=== PATIENT | female | born 2005 | race African-American/Black ===

== ENCOUNTER 2024-09-02 13:28 | Emergency (ER) | payer BC, SELFPAY ==
--- NOTE | 2024-09-02 13:34 | ED_ITS ---
HPI - Female Genitourinary General Chief complaint: RN PLASTICS Stated complaint: std test Time Seen by Provider: 09/02/24 13:41 Source: patient and RN notes reviewed Mode of arrival: ambulatory Limitations: no limitations History of Present Illness HPI Narrative: 19-year-old female presents to the [facility] with concerns for STDs. States that she was tested back in March, never treated, was unable to pick get back to get treatment. Comes in today just requesting treatment. Has had discharge. Patient states that she has not had sex since she was diagnosed in March. Patient's last period was 5 days ago. [facility] in [facility], patient was able to bring up my chart, patient was positive for chlamydia and gonorrhea. Onset (ago): month(s) Related Data Allergies Allergy/AdvReac Type Severity Reaction Status Date / Time No Known Allergies Allergy Verified 09/02/24 13:38 Review of Systems Review of Systems: All systems reviewed & are unremarkable except as noted in HPI and below Constitutional: Constitutional: Reports no additional constitutional complaints ENT: Reports system reviewed and no additional complaints, except as documented Cardiovascular: Cardiovascular: Reports no additional cardiovascular complaints, Denies chest pain and Denies dyspnea Respiratory: Respiratory: Reports no additional respiratory complaints, Denies chest congestion, Denies cough and Denies dyspnea Genitourinary: Genitourinary: Reports as per HPI Musculoskeletal: Musculoskeletal: Reports no additional musculoskeletal complaints Integumentary/Breasts: Skin/Breast: Reports system reviewed and no additional complaints, except as docu PMFSH Comments At the time of my signature, I reviewed and agree with the nursing past medical, surgical, social, and family history. There is no relevant family history pertinent to the patient complaint. Exam Const: General: cooperative, healthy appearing, comfortable, no acute d istress, well developed, alert and well nourished Nutritional Appearance: well nourished Orientation/consciousness: patient oriented x3 Limitations: no limitations HENMT: Head: normal to inspection Eyes: General: appearance normal, both eyes and all related structures Alignment and Position: alignment normal Neck: Neck: normal visual inspection, full ROM, no lymphadenopathy and no meningeal signs Chest: Chest palpation & inspection: normal inspection of the chest Resp: Effort & Inspection: normal respiratory effort and able to speak in complete sentences Auscultation: clear to auscultation bilaterally, no crackles, no rales, no rhonchi and no wheezes Cardio: Rate: regular rate GI: GI Palp: No abdominal tenderness : General: Yes no CVA tenderness Speculum Exam - Vagina: abnormal vaginal discharge, erythematous and tenderness Speculum Exam - Cervix: Cervical os closed, Cervical tenderness present and Other cervical findings present (Friable) Other: Chaperoned by Dhara Skin: General skin exam: normal color and no rashes or lesions noted Neuro: General: patient oriented x3, gait normal, moves all extremities and no meningeal signs Cognition (Neuro): normal cognition Speech: normal speech Gait exam (Neuro): Normal gait present Extrem: General: normal to inspection, full ROM, capillary refill normal and normal gait Psych: Appearance: grossly normal and well kempt Mental Status: mental status grossly normal Speech and movement: Normal speech and movement present and Clear speech present Affect: normal affect Attitude: cooperative Course Course Level of Care: Express Care Visit Vital Signs Vital signs: Vital Signs Temperature 98.0 F 09/02/24 13:41 Pulse Rate 98 09/02/24 13:41 Respiratory Rate 18 09/02/24 13:41 Blood Pressure 139/78 09/02/24 13:41 Pulse Oximetry 100 09/02/24 13:41 Oxygen Delivery Room Air 09/02/24 13:41 Temperature 98.0 F 09/02/24 13:41 Pulse Rate 98 09/02/24 13:41 Respiratory Rate 18 09/02/24 13:41 Blood Pressure 139/78 09/02/24 13:41 Pulse Oximetry 100 09/02/24 13:41 Oxygen Delivery Room Air 09/02/24 13:41 Reviewed MDM - Female Genitourinary MDM Narrative Medical decision making narrative: Patient sitting in exam room. Patient is nontoxic, vitals are stable Swab done for BV, trich, gonorrhea, chlamydia. Due to patient's exam, covering for gonorrhea, will call in additional medication if positive Patient appropriate for outpatient treatment with close follow-up. List of STI clinics given Discharge instructions reviewed with patient, as well as provided in writing per nursing staff. The instructions also include specific and strict return/GO TO THE ER as well as f/u information. All questions have been answered, and the patient deny any further questions with discharge and discharge plan. Some parts of this dictation were generated by voice recognition software and may contain typographical and/or grammatical inaccuracies. Differential Diagnosis Differential diagnosis: Likely urinary tract infection, bacterial vaginosis, trichomoniasis, cervicitis, vaginitis, cystitis and dysmenorrhea Lab Data Labs: Lab Results 09/02/24 09/02/24 Range/Units 13:52 13:55 C. trachomatis (PCR) Pending N. gonorrhoeae (PCR) Pending T. vaginalis (PCR) Pending Bact Vaginosis Panel Cancelled Reviewed Critical Care Time Critical Care Time Critical Care Time: No Discharge Plan Discharge Clinical Impression: Concern about STD in female without diagnosis, History of gonorrhea, History of chlamydia Patient Disposition: Home Condition: Stable Instructions: Bacterial Vaginosis (ED), Chlamydia (ED), Safe Sex Practices (ED), Gonorrhea (ED) Additional Instructions: You been tested for chlamydia, gonorrhea and Trichomonas. We have given you a shot of Rocephin, this is to treat the gonorrhea. If the others come back positive we will call you or please give us a call at the clinic on either late or Sunday. If you are at all positive please follow-up with an STI clinic or automotive fuel systems converter provider for further evaluation and additional testing. New or worsening symptoms go directly to the emergency room Patient Language: [place] Follow-up/Referrals: PHYSICIAN,ELECTRONIC DEVELOPMENT TECHNICIAN [Primary Care Provider] - Sourav Echols MD [Physician] - 1 Week Time of Disposition: 14:06
--- OUTSIDE RECORDS SUMMARY | 2024-09-02 13:34 | XMS_ITS | Referral Summary ---
Author Organization [facility] Address [address] [place] [address] Care Team Providers Care Structural Steel Worker Name Role Phone Avril Marquis MD Unavailable [phone] Oriana Ruggiero NP Primary Care Provider [phone] Allergies No known active allergies Active Problems Problem Noted Date Diagnosed Date Unspecified mood (affective) disorder 10/06/2022 Social History Tobacco Use Types Packs/Day Years Used Date Smoking Tobacco: Never Assessed Personal Safety Answer Date Recorded Have you ever been in or are you currently in a harmful physical or emotional relationship or is someone making you feel afraid or unsafe? 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 Gender Identity Not on file Sexual Orientation Not on file Last Filed Vital Signs Vital Sign Reading Time Taken Comments Blood Pressure 126/57 06/16/2023 4:00 AM CDT Pulse 54 06/16/2023 4:00 AM CDT Temperature 37.1 C (98.8 F) 06/15/2023 11:56 PM CDT Respiratory Rate 13 06/16/2023 4:00 AM CDT Oxygen Saturation 93% 06/16/2023 4:00 AM CDT Inhaled Oxygen Concentration - - Weight 88.5 kg (195 lb) 06/15/2023 11:56 PM CDT Height - - Body Mass Index - - Plan of Treatment Not on file Insurance [place]OW [place] [employer] KIDS ANTHEM ACCESS CHOICE [place]ALTH[place] ACCESS CHOICE Member Subscriber Plan / Payer (Ef fective 2011-Present) Name:Marcelle Hyatt Relation to Subscriber:Child Name:GEMA HYATT Date of :1962 (Home) Address: [address] [place] [address] Payer ID:[id number] (NAIC) Type:BC ALLIANCE Address: [address] [place] [id number] Care Teams Structural Steel Worker Relationship Specialty [place] [address] [place] [address] PCP - General Family Medicine 02/08/23 Avril Marquis MD Psychiatry 11/08/22
--- OUTSIDE RECORDS SUMMARY | 2024-09-02 13:34 | XMS_ITS | Clinical Summary ---
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 Gender Identity Not on file Sexual Orientation Not on file Obstetrics History Last Filed Vital Signs Vital Sign Reading [...] Mass Index - - Plan of Treatment Health Maintenance Due Date Last Done Comments Cervical Cancer Screening 2003 Depression Screening 2003 Hepatitis C Screening 2003 Varicella Vaccines (2 of 2 - 2-dose childhood series) 2007 08/31/2004 Regular Well Visit/Exam 18-64 08/27/2021 Covid-19 Vaccine (2023- season) 2023 08/12/2021, 09/18/2020, 08/23/2020 Influenza Vaccine (#1) 2024 DTaP/Tdap/Td Vaccine (7 - Td or Tdap) 10/25/2025 10/26/2015, 10/26/2015, 01/16/2005, Additional history exists HPV Vaccines Completed 09/13/2016, 10/07, 10/26/2015 Hepatitis B Screening Completed 09/13/2017 , 06/02/2004, 03/16/2004, Additional history exists Meningococcal Vaccine Completed 09/12/2019 , 09/12/2019, 10/26/2015 Meningococcal B Vaccine Completed 03/03/19, 03/03/2020, 09/12/2019, Additional history exists Pneumococcal vaccine <65 Aged Out No longer eligible based on patient's age to complete this topic [place]ESS CHOICE [employer]OW [place] [employer]IDS ANTHEM ACCESS CHOICE Care Teams Merchandise Shopper Relationship Specialty [place] [address] [address] PCP - General Family Medicine 02/08/23 Avril Marquis MD Psychiatry 11/08/22
--- OUTSIDE RECORDS SUMMARY | 2024-09-02 13:34 | XMS_ITS | Continuity of Care Document ---
Author Organization [facility] Address [address] [place] [address] Phone Care Team Providers Care Brine Maker Name Role Phone Management, Case Unavailable Unavailable Allergies, Adverse Reactions, Alerts Substance Reaction Status Criticality pineapple Active No Information [employer]ivatives Active No In formation Procedures Procedure Date OFFICE/OUTPATIENT VISIT, NEW URINE TEST, BY VISUAL COLOR CO MPARISON METHODS Advance Directives Directive Yes / No Effective Date File Name No Information Encounters Encounter Description Practice Location Reason(s) For Visit Diagnoses Date Provider Providers Copied on Encounter [facility], [address], [place], [place], [id number] , [place] tel: [phone] [facility] No Information [address] [facility] [address]. [address], [place], [place], [id number], [place]. tel:[phone] [facility], [address], [place], [place], [address] , [place] tel:[phone] [facility] No Information No Information OFFICE/OUTPA TIENT VISIT, NEW [facility], [address], [place], [place], [address] , [place] tel: [phone] [facility] check up (chief complaint) BMI pediatric, greater than or equal to 95% for ageEncounter for testEncounter for STD screeningEncounter for sex educationEncounter for other general counseling on contraceptionOverw eight or Obesity 1 No Information Family History Family Member Type Diagnosis Age At Onset No Information Immunizations Vaccine Date Status Comments Bexsero (MenB) administered Source: Other Registry Bexsero (MenB) administered Source: Other Registry meningococcal ACWY vaccine, unspecified formulation administered Source: Other Re gistry Vaqta/Havrix Ped/Adol (HepA) administered Source: Other Registry IPOL (IPV) administered Source: Other R egistry Recombivax/Engerix B Ped/Ado l (HepB ped/adol, 3 dose) administered Source: Other Regist ry Vaqta/Havrix Ped/Adol (HepA) administered Source: Other Registry Adacel/Boostrix (Tdap) administered [facility] e: Other Registry Menactra (MCV4P) administered Source: Ot er Registry Gardasil 9 (HPV-9) administered Source: O ther Registry Haemophilus influenzae type b vaccine, conjugate unspecified formulation administered Source: Other Regist ry Infanrix (DTaP younger than 7 yrs) admini stered Source: Other Registry Varivax (varicella) administered Source: Other Registry MMR II (MMR) administered Source: Other R egistry IPOL (IPV) administered Source: Other R egistry Recombivax/Engerix B Ped/Ado l (HepB ped/adol, 3 dose) administered Source: Other Regist ry Haemophilus influenzae type b vaccine, conjugate unspecified formulation administered Source: Other Regist ry Infanrix (DTaP younger than 7 yrs) admini stered Source: Other Registry IPOL (IPV) administered Source: Other R egistry Haemophilus influenzae type b vaccine, conjugate unspecified formulation administered Source: Other Regist ry Infanrix (DTaP younger than 7 yrs) admini stered Source: Other Registry ActHib [Hib (PRP-T)] administered Source: Other Registry Pediarix (DTaP/HepB/IPV) administered Liz rce: Other Registry Payers Payer name Insurance type Covered constitution party ID Authoriza tion(s) No Information Social History Type Description Quantity Date Captured Comments Sex Female Smoking Status No Information Chief Complaint And Reason For Visit No Information Reason For Referral Reason For Referral No Information History Of Present Illness Encounter Date Complaint History Of Prese nt Illness check up Marcelle here with counselor requesting testUnprotected intercourse with partner 2-3 weeks Noticed mild breast tendernessUnsure of last period, around Morel's day. Monthly menstrual usuallyDeclined condoms todayNo further concerns Functional Status Date Functional Assessmen t No Information Instructions Date Instruction Additional Infor mation AFSHAN and depo provera injection discussed. Marcelle will f/u once choice is made regarding contraception Related to Encounter for other general counseling on contraception Counseled on safe se x practices-STI and preventionExtensive education givenDecline condoms Related to Encounter for sex education Nutrition and Physic al activity handout provided Related to Overweight or Obesity negative Related to Encou nter for test Food education, guidance, and co unseling Related to Body mass index [BMI] pediatric, greater than or equal to 95th percentile for age Assessments Type Assessment Date No Information Patient Care Teams Name Effective Dates (start - stop) Status Members No Information
--- OUTSIDE RECORDS SUMMARY | 2024-09-02 13:35 | XMS_ITS | Encounter Summary ---
Author Organization [facility] Address [address] [place] [address] Care Team Providers Care Dynamometer Tester Engine Name Role Phone Maykel Barney MD Primary Care Provider [phone] Reason for Visit * Reason Onset Date Comments Medication Problem 09/28/2023 Encounter Details Date Type Department Care Team (Late st Contact Info) Description 09/28/2023 Telephone [facility] [address] [facility], [address] [place], [place] [id number] Tanvi Escobar Medication Problem Social History Tobacco Use Types Packs/Day Years Used Date Smoking Tobacco: Every Day Cigarettes Smokeless Tobacco: Never Passive Exposure Comments:on e a day Alcohol Use Standard Drinks/Week Comments Yes 0 (1 standard drink = 0.6 oz pur e alcohol) socailly AUDIT-C Answer Date Recorded Q1: How often do you have a drink containing alc ohol? Monthly or less 08/15/2022 Average Number of Drinks Not on file 023 Q3: How often do you have si x or more drinks on one occasion? Never 08/15/2022 PHQ-2 Answer Date Recorded Patient Health Questionnaire-2 Score 0 09/27/2023 Comments No Sex and Gender Information Value Date Recorded Sex Assigned at Not on file Legal Sex Female 2:10 PM COMMISSION ASSOCIATE Gender Identity Not on file Sexual Orientation Not on file documented as of this encounter Miscellaneous Notes * Telephone Encounter - Dianne Hinojosa - 09/28/2023 1:11 PM CDT Who is calling? Self What is the reason for call? Patient like to go over result and me cation that will be prescribed Expected Response from the Clinic? Please call to advise Did you notify caller of response or call back timeframe? YES Encounter before 6:30p - same day Encounter after 6:30p - next day documented in this encounter Plan of Treatment Not on file documented as of this encounter Visit Diagnoses Not on filedocumented in this encounter Additional Health Concerns Infection Onset Date Last Indicated Resolved Time COVID-19 Under Investigation 01/27/2024 01/27/2024 01/27/2024 11:03 AM COMMISSION ASSOCIATE COVID-19 Confirmed 01/27/2024 01/27/2024 4:33 AM COMMISSION ASSOCIATE documented as of this encounter Care Teams Dynamometer Tester Engine Relationship Specialty Start Date End Date Maykel Banrey MD [address] [place] [address] PCP - General Pediatrics 04/03/19 documented as of this encounter
--- OUTSIDE RECORDS SUMMARY | 2024-09-02 13:35 | XMS_ITS | Clinical Summary ---
Author Organization [facility] Address [address] [facility] [place] [address] Care Team Providers Care Mortar Carrier Name Role Phone Maykel Barney MD Primary Care Provider [phone] Source Comments [facility],non-[facility] health Affiliates and Associated Physician Practices is amultiple site organization consisting of ambulatory clinics and hospital sitesin [place], [place], [place] and [place]. This disclosure is being madepursuant to the Care Everywhere program and may not contain all information available regarding this patient. Last updated 17.[facility] [employer] Allergies Active Allergy Reactions Criticality Noted Date Comments Apple Itching Low 04/03/2019 Carrot Oil Itching Medium 04/03/2019 Ayoub Swelling High 02/22/2022 Sweetwater Fruit Swelling Medium 04/03/2019 Pineapple Swelling Medium 04/03/2019 Medications * This document contains information received from the source organization and may not represent a complete record from that organization. * Be aware that medications may not be up to date on this document. Alwaysverify current medications with the patient. metroNIDAZOLE vaginal (Metrogel - Vaginal) 0.75 % vaginal gel Insert 1 applicator into the vagina at bedtime 70 g 5 Active Active Problems Problem Noted Date Diagnosed Date Contact dermatitis due to cosmetics 10/13/2023 Immunizations Immunization Administration Dates Next Due Covid Pfizer primary monoval ent 12+ yr 0.3mL Purple cap 09/18/2020,08/23/2020 DTAP HIB IPV 10/26/2015,01/16/2005 DTAP/HEP B/IPV 03/16/2004,01/21/2004,2003 HEP A PEDS 2 DOSE 09/12/2019,09/13/2017 HEP B VACCINE ADOL/ADULT 2 DOSE 09/13/2017,06/02,2003 HIB-PRP-T 4 DOSE 12/17/2004, 5,01/21/2004,10/28 HPV VACCINE 09/13/2016,10/26/2015 MENINGOCOCCAL ACWY MENVEO 09/12/2019,10/26/2015 MENINGOCOCCAL B VACCINE 03/03/2020,09/12/2019 MMR 08/31/2004 POLIO IPV 01/06/2019, 5,01/21/2004,10/28 VARICELLA 08/31/2004 Social History Tobacco Use Types Packs/Day Years Used Date Smoking Tobacco: Unknown Passive Smoke Exposure: Past Smokeless Tobacco: Never Tobacco Cessation:Counseling Given: Not Answered Passive Exposure Comments:one a day Alcohol Use Standard Drinks/Week Comments [...] Date Recorded Patient Health Questionnaire-2 Score 0 03/18/2024 Comments No Sex and Gender Information Value Date Recorded Sex Assigned at Not on file Legal Sex Female 2:10 PM VP CUSTOMER DEVELOPMENT Gender Identity Not on file Sexual Orientation Not on file Last Filed Vital Signs Vital Sign Reading Time Taken Comments Blood Pressure 117/80 03/18/2024 2:21 PM VP CUSTOMER DEVELOPMENT Pulse 53 03/18/2024 2:21 PM VP CUSTOMER DEVELOPMENT Temperature 36.7 C (98.1 F) 03/18/2024 2:21 PM VP CUSTOMER DEVELOPMENT Respiratory Rate 16 03/18/2024 2:21 PM VP CUSTOMER DEVELOPMENT Oxygen Saturation 100% 03/18/2024 2:21 PM VP CUSTOMER DEVELOPMENT Inhaled Oxygen Concentration - - Weight 84.8 kg (187 lb) 03/18/2024 2:21 PM VP CUSTOMER DEVELOPMENT Height 167.6 cm (5' 6) 03/18/2024 2:21 PM VP CUSTOMER DEVELOPMENT Body Mass Index 30.18 03/18/2024 2:21 PM VP CUSTOMER DEVELOPMENT Plan of Treatment Health Maintenance Due Date Last Done Comments HIV SCREENING 08/27/2018 MENINGOCOCCAL (Group B) VACCINE SHARED DECISION-MAKING (1 of 2 - Standard) 03/31/2020 03/03/2020, 09/12/2019 HEPATITIS C SCREENING 08/23/2021 COVID-19 VACCINE ( season) 2023 08/12/2021, 09/18/2020, 08/23/2020 PAP SMEAR 08/27/2024 INFLUENZA VACCINE (#1) 2024 CHLAMYDIA/GONORRHEA SCREENING 03/18/2025 03/18/2024, 02/22/2024, 11/23/2023, Additional history exists DTAP/TDAP/TD VACCINES (6 - Tdap) 10/25/2025 10/26/2015, 01/16/2005, 03/16/2004, Additional history exists ZOSTER VACCINE (1 of 2) 08/27/2053 HIB VACCINE Completed 10/26/2015, 01/05, 12/17/2004, Additional history exists HPV VACCINE Completed 09/13/2016, 10/26/2015 HEPATITIS B VACCINE Completed 09/13/2017, 06/02/2004, 03/16/2004, Additional history exists MENINGOCOCCAL GROUPS A/C/Y/W VACCINE Completed 09/12/2019, 10/26/2015 DEPRESSION SCREENING Completed 02/22/2024, 09/27/2023, 02/22/2022 PNEUMOCOCCAL VACCINE Aged Out No long er eligible based on patient's age to complete this topic Procedures Procedure Name Priority Date/Time Associated Diagnosis Comments CHLAMYDIA + GC AMPLIFIED PROBE STAT 03/18/2024 2:38 PM VP CUSTOMER DEVELOPMENT Vaginal discharge from Last 3 Months or Most Recently Relevant to Health Maintenance Results * (ABNORMAL) CHLAMYDIA + GC AMPLIFIED PROBE (03/18/2024 2:38 PM VP CUSTOMER DEVELOPMENT) Chlamydia Amplified Probe Positive( A) Negative 03/20/2024 12:21 AM VP CUSTOMER DEVELOPMENT [facility] GC Amplified Probe Positive( A) Negative 03/20/2024 12:21 AM VP CUSTOMER DEVELOPMENT [facility] Microbiology PART OF UTERINE CERVIX / Unknown Collection / Unknown 03/18/2024 2:38 PM VP CUSTOMER DEVELOPMENT 03/18/2024 2:38 PM VP CUSTOMER DEVELOPMENT Narrative [facility] - 03/20/2024 12:21 AM VP CUSTOMER DEVELOPMENT Repeat testing is recommended 3 months post treatment for patients who test positive for Chlamydia trachomatis/Neisseria gonorrhoeae. Results based on detection/no detection of ribosomal RNA by amplified method. May Sue CREATIVE MANAGER-EQUIPMENT OPERATION INSTRUCTOR LAB - MICROBIOLOGY ORDERABL ES Final Result [facility] [address] [place] [address], [facility] [phone] from Last 3 Months or Most Recently Relevant to Health Maintenance Insurance [facility] [place] [facility] ANTHEM ANTHEM Member Subscriber Plan / Payer (Ef fective 2009-Present) Name:Marcelle Hyatt Relation to Subscriber:Child Name:GEMA HYATT (Home) [address]: [address] [place] [id number] Payer ID:[id number] (NAIC) Type:PPO Address: [address] MEDICAID - [facility] COMM[employer] PLAN Care Teams Mortar Carrier Relationship Specialty Start Date End Date Maykel Barney MD [address] [place] [address] PCP - General Pediatrics 04/03/19
[2024-09-02 13:41] VITALS: BP 139/78; PULSE 98; RESP 18; TEMP 36.7; O2SAT 100
--- NOTE | 2024-09-02 13:41 | ED.FEMALEGU ---
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 Related Data Allergies Allergy/AdvReac Type Severity Reaction Status Date / Time No Known Allergies Allergy Verified 09/02/24 13:38 Discharge Plan Discharge Patient Language: German Follow-up/Referrals: PHYSICIAN,AUTOMATION CLERK [Primary Care Provider] -
[2024-09-02] MEDS: cefTRIAXone 500 MG, LIDOCAINE 1% LOCAL INJ 1 ML IM (14:18)
[2024-09-02 20:24] LABS: Trichomonas Vag PCR NOT DETECTED (NOT DETECTE)
--- NOTE | 2024-09-04 08:47 | PC.NURSE ---
Unable to contact pt at number provided. She needs treated for positive chlamydia results. Rx was sent to [facility]. Letter mailed to address on file.
== END 2024-09-02 14:55 | disposition home or self-care (01) ==
PROVIDERS: Emergency Provider Nurse Practitioner
DX: A74.9 Chlamydial infection, unspecified (principal); A59.9 Trichomoniasis, unspecified
CPT/HCPCS: 87491; 87591; 87661; 87798; 96372; 99213; G0463; J0696; J2003